=== PATIENT | male | born 1980 | race Hispanic/Latino ===

== ENCOUNTER 2017-11-03 08:33 | Day surgery (SDC) | payer MEDICAID ==
[~2017-11-03] VITALS: Ht 182.9 cm; Wt 141.2 kg
[~2017-11-03 08:33] MED LIST: OMEPRAZOLE
[2017-11-03 09:31] VITALS: BP 117/70
[2017-11-03] MEDS ORDERED: PROPOFOL 10 MG/ML 20ML VIAL IV ONE (10:41)
[2017-11-03] MEDS ORDERED: PROPOFOL 1000 MG/100 ML 100 ML IV ONE (10:48)
[2017-11-03 11:05] VITALS: BP 92/48
[2017-11-03] MEDS: SODIUM CHLORIDE 0.9% 1000ML 1,000 ML IV ONE (11:12)
== END 2017-11-03 11:45 | disposition home or self-care (01) ==
LOC: ENDO 08:33 → DAH 08:33 → ENDO 11:45
PROVIDERS: ATTEND Internal Medicine Gastroenterology
DX: K92.1 Melena (principal); B96.81 Helicobacter pylori [H. pylori] as the cause of diseases classified elsewhere; K29.70 Gastritis, unspecified, without bleeding; K44.9 Diaphragmatic hernia without obstruction or gangrene; K21.9 Gastro-esophageal reflux disease without esophagitis; F32.9 Major depressive disorder, single episode, unspecified; Z68.41 Body mass index [BMI] 40.0-44.9, adult
CPT/HCPCS: 43239; 45378; 88305; A4606; J2704 ×2; J7030